=== PATIENT | female | born 1970 | race Caucasian/White ===

== ENCOUNTER 2018-05-12 09:59 | Emergency (ER) | payer OTHER ==
[~2018-05-12] VITALS: Ht 167.6 cm; Wt 79.4 kg
[2018-05-12 10:23] VITALS: BP 137/82
[2018-05-12] MEDS ORDERED: IV NORMAL SALINE 1,000ML 1,000 ML IV SCH (10:35)
[2018-05-12 10:45] LABS: BASO % 0 % (0-3); EOS # 0.1 x10^3/uL (0.0-0.7); EOS % 1 % (0-3); HEMATOCRIT 41.8 % (36.0-47.0); LYMPH # 1.6 x10^3/uL (1.0-4.8); LYMPH % 23 % (24-48); MEAN CORPUSCULAR HEMOGLOBIN 30 pg (25-35); MEAN CORPUSCULAR HGB CONC 34 g/dL (31-37); MEAN CORPUSCULAR VOLUME 89 fL (79-100); MONO # 0.5 x10^3/uL (0.0-1.1); MONO % 7 % (0-9); NEUT # 4.9 x10^3uL (1.8-7.7); NEUT % 69 % (31-73); PLATELET COUNT 237 x10^3/uL (140-400); RED BLOOD COUNT 4.69 x10^6/uL (3.50-5.40); RED CELL DISTRIBUTION WIDTH 13.1 % (11.5-14.5); WHITE BLOOD COUNT 7.1 x10^3/uL (4.0-11.0)
[2018-05-12] MEDS ORDERED: ONDANSETRON PF 4 MG/2 ML VIAL. IV ONE (10:45)
[2018-05-12 11:07] LABS: ALBUMIN 3.5 g/dL (3.4-5.0); ALBUMIN/GLOBULIN RATIO 0.8 (1.0-1.7); CALCIUM 9.6 mg/dL (8.5-10.1); CREATININE 0.7 mg/dL (0.6-1.0); GFR 89.7; POTASSIUM 3.8 mmol/L (3.5-5.1); TOTAL BILIRUBIN 0.4 mg/dL (0.2-1.0); TOTAL PROTEIN 8.1 g/dL (6.4-8.2)
--- NOTE | 2018-05-12 11:30 | PHYS DOC ---
Past History Past Medical History: No Pertinent History Past Surgical History: Other Smoking: Non-smoker Alcohol Use: Rarely Drug Use: None Adult General Chief Complaint Chief Complaint: NAUSEA/VOMITING/DIARRHEA HPI HPI Patient is a 47 year old female who presents with complaining of dizziness after episodes of vomiting and diarrhea . Patient state she started to have episodes of diarrhea 6 days ago with 5 or 6 episodes of nonbloody stool every day that improved patient states she had 2 episodes of vomiting last night with a constant dizziness and even her vomiting and diarrhea improved today but she still feels constant dizziness that getting worse with movement of her head and change of position. Patient states she had abdominal cramping pain mild fever the first few days that resolved. Patient denies urinary symptoms, sick contact , focal neuro deficit, headache, blurred vision, tinnitus, chest pain, palpitation, shortness of breath, cough and congestion and URI symptom. Review of Systems Review of Systems Constitutional: Reports fever Eyes: Denies change in visual acuity, redness, or eye pain [] HENT: Denies nasal congestion or sore throat [] Respiratory: Denies cough or shortness of breath [] Cardiovascular: No additional information not addressed in HPI [] GI: Reports abdominal pain, nausea, vomiting, diarrhea [] : Denies dysuria or hematuria [] Musculoskeletal: Denies back pain or joint pain [] Integument: Denies rash or skin lesions [] Neurologic: Denies headache, focal weakness or sensory changes [] Endocrine: Denies polyuria or polydipsia [] All other systems were reviewed and found to be within normal limits, except as documented in this note. Current Medications Current Medications Current Medications Medications (Trade) Dose Ordered Sig/Noe Start Time Stop Time Status Last Admin Dose Admin Ondansetron HCl (Zofran) 4 mg 1X ONCE 05/12/18 10:45 05/12/18 10:46 DC 05/12/18 11:09 4 MG Sodium Chloride 1,000 ml @ 1,000 mls/hr Q1H 05/12/18 10:35 05/12/18 11:34 05/12/18 10:46 1,000 MLS/HR Allergies Allergies Allergies Coded Allergies Type Severity Reaction Last Updated Verified No Known Drug Allergies 10/26/13 No Physical Exam Physical Exam Constitutional: Well developed, well nourished, mild distress, non-toxic appearance. [] HENT: Normocephalic, atraumatic, bilateral external ears normal, oropharynx moist, no oral exudates, nose normal. [] Eyes: PERRLA, EOMI, conjunctiva normal, no discharge. [] Neck: Normal range of motion, no tenderness, supple, no stridor. [] Cardiovascular:Heart rate regular rhythm, no murmur [] Lungs & Thorax: Bilateral breath sounds clear to auscultation [] Abdomen: Bowel sounds normal, soft, no tenderness, no masses, no pulsatile masses. [] Skin: Warm, dry, no erythema, no rash. [] Back: No tenderness, no CVA tenderness. [] Extremities: No tenderness, no cyanosis, no clubbing, ROM intact, no edema. [] Neurologic: Alert and oriented X 3, normal motor function, normal sensory function, no focal deficits noted. [] Psychologic: Affect normal, judgement normal, mood normal. [] Current Patient Data Vital Signs Vital Signs Date Time Temp Pulse Resp B/P (MAP) Pulse Ox O2 Delivery O2 Flow Rate FiO2 05/12/18 10:23 98.2 20 97 Room Air Lab Results Laboratory Tests Test 05/12/18 10:23 White Blood Count 7.1 x10^3/uL (4.0-11.0) Red Blood Count 4.69 x10^6/uL (3.50-5.40) Hemoglobin 14.0 g/dL (12.0-15.5) Hematocrit 41.8 % (36.0-47.0) Mean Corpuscular Volume 89 fL (79-100) Mean Corpuscular Hemoglobin 30 pg (25-35) Mean Corpuscular Hemoglobin Concent 34 g/dL (31-37) Red Cell Distribution Width 13.1 % (11.5-14.5) Platelet Count 237 x10^3/uL (140-400) Neutrophils (%) (Auto) 69 % (31-73) Lymphocytes (%) (Auto) 23 % (24-48) L Monocytes (%) (Auto) 7 % (0-9) Eosinophils (%) (Auto) 1 % (0-3) Basophils (%) (Auto) 0 % (0-3) Neutrophils # (Auto) 4.9 x10^3uL (1.8-7.7) Lymphocytes # (Auto) 1.6 x10^3/uL (1.0-4.8) Monocytes # (Auto) 0.5 x10^3/uL (0.0-1.1) Eosinophils # (Auto) 0.1 x10^3/uL (0.0-0.7) Basophils # (Auto) 0.0 x10^3/uL (0.0-0.2) Troponin I Quantitative < 0.017 ng/mL (0-0.055) EKG EKG EKG interpreted by me. EKG at 1154 showed normal sinus rhythm at rate of [address] and T-wave abnormalities.[] Radiology/Procedures Radiology/[place] [address] IMAGING REPORT Signed PATIENT: REANNA RIVAS ACCOUNT: [id number] : 1970 LOCATION: ER AGE: 47 SEX: F EXAM STATUS: REG ER ORD. PHYSICIAN: ELENA XIE MD REASON: dizziness PROCEDURE: CT HEAD WO CONTRAST CT HEAD WO CONTRAST Indication: HEADACHE/DIZZINESS X 1 DAY, PT SHIELDED, LMP 05-03-2018 Exposure: One or more of the following individualized dose reduction techniques were utilized for this examination: 1. Automated exposure control 2. Adjustment of the mA and/or kV according to patient size 3. Use of iterative reconstruction technique. Technique: Standard imaging without intravenous contrast. FINDINGS: No acute intracranial hemorrhage, mass effect or midline shift. Ventricles and sulci are within normal limits. Quintana-white matter distinction is intact. Partially visualized sinuses are clear. No evidence of acute skull abnormality. Orbits unremarkable. IMPRESSION: No evidence of acute intracranial hemorrhage or mass effect. Electronically signed by: Rachid Alston MD (05/12/2018 12:18 PM) [facility] DICTATED AND SIGNED BY: RACHID ALSTON MD DATE: 05/12/18 1218 CC: JULIAN HERMOSILLO; ELENA XIE MD ~ Course & Med Decision Making Course & Med Decision Making Pertinent Labs and Imaging studies reviewed. (See chart for details) Evaluation of patient in ER showed 47-year-old male patient with complaining of dizziness after several days of diarrhea and vomiting. Patient had unremarkable physical exam and labs and EKG and CT of head. Patient treated with IV fluid and meclizine and Zofran and felt better. Plan discharge patient home with diagnose of viral gastroenteritis and dizziness. Dragon Disclaimer Dragon Disclaimer This electronic medical record was generated, in whole or in part, using a voice recognition dictation system. Departure Departure: Impression: Primary Impression: Viral gastroenteritis Additional Impression: Dizziness Disposition: HOME, SELF-CARE (at 1255) Condition: IMPROVED Referrals: JULIAN HERMOSILLO (PCP) Patient Instructions: Dizziness, Viral Gastroenteritis Additional Instructions: Drink plenty of liquids Follow-up with your primary care physician in 3-5 days Return to ER if not getting better Scripts Ondansetron Hcl (ZOFRAN) 4 Mg Tablet 1 TAB PO Q6HRS for nausea and vomiting, #12 TAB Prov: ELENA XIE MD 05/12/18 Meclizine Hcl (MECLIZINE HCL) 25 Mg Tablet 1 TAB PO PRN TID for dizziness, #30 TAB Prov: ELENA XIE MD 05/12/18 Problem Qualifiers ELENA XIE MD May 12, 2018 11:30
[2018-05-12] MEDS ORDERED: MECLIZINE 12.5 MG TABLET. PO STA (11:49)
[2018-05-12] MEDS ORDERED: IV NORMAL SALINE 1,000ML 1,000 ML IV ONE (12:00)
--- NOTE | 2018-05-12 12:21 | RAD ---
CT HEAD WO CONTRAST Indication: HEADACHE/DIZZINESS X 1 DAY, PT SHIELDED, LMP 05-03-2018 Exposure: One or more of the following individualized dose reduction techniques were utilized for this examination: 1. Automated exposure control 2. Adjustment of the mA and/or kV according to patient size 3. Use of iterative reconstruction technique. Technique: Standard imaging without intravenous contrast. FINDINGS: No acute intracranial hemorrhage, mass effect or midline shift. Ventricles and sulci are within normal limits. Quintana-white matter distinction is intact. Partially visualized sinuses are clear. No evidence of acute skull abnormality. Orbits unremarkable. IMPRESSION: No evidence of acute intracranial hemorrhage or mass effect. Electronically signed by: Rachid Alston MD (05/12/2018 12:18 PM) [facility]
[2018-05-12 12:30] LABS: BILIRUBIN,URINE NEG (NEG); CLARITY,URINE CLEAR; COLOR,URINE YELLOW; GLUCOSE,URINE NEG (NEG)
[2018-05-12 12:31] LABS: BACTERIA,URINE FEW /HPF (0-FEW); NITRITE,URINE NEG (NEG); RBC,URINE RARE /HPF (0-2); SQUAMOUS EPITHELIAL CELL,UR FEW /LPF; UROBILINOGEN,URINE 0.2 mg/dL (0.2 mg/dL)
[2018-05-12] MEDS ORDERED: MECL25TA3 PO (12:56)
[2018-05-12] MEDS ORDERED: ONDA4TAB7 PO (12:56)
--- NOTE | 2018-05-13 21:30 | EKG ---
[address] [address] Test Date: 2018-05-12 Test Time: 11:54:07 Pat Name: REANNA RIVAS Department: Room: Gender: F Information Support Project Manager: : 1970 Requested By: ELENA XIE Order Number: [id number] Reading MD: Rich Vemra MD Measurements Intervals [place] Rate: 79 P: 62 KS: 196 QRS: -16 QRSD: 92 T: 26 QT: 400 QTc: 465 Interpretive Statements SINUS RHYTHM Electronically Signed On 05-22-2018 22:02:18 CDT by Rich Verma MD
== END 2018-05-12 13:00 | disposition home or self-care (01) ==
LOC: ER 09:59
DX: A08.4 Viral intestinal infection, unspecified (principal); R42 Dizziness and giddiness; R51 Headache
CPT/HCPCS: 36415; 70450; 80053; 81001; 83690; 84484; 85025; 93005; 96361; 96374; 99284; J2405; J8597; J7030